=== PATIENT | male | born 1955 | race Caucasian/White ===

== ENCOUNTER 2020-07-11 22:54 | Emergency (ER) | payer BC ==
[2020-07-11 23:10] VITALS: BP 159/95; PULSE 82
--- NOTE | 2020-07-11 23:42 | EDM.PDOC ---
ED HPI GENERAL MEDICAL PROBLEM - General Chief Complaint: Lower Extremity Injury/Pain Stated Complaint: RIGHT LEG INJURY FROM A FALL Time Seen by Provider: 07/11/20 23:15 Source of Information: Reports: Patient, Family History Limitations: Reports: No Limitations - History of Present Illness INITIAL COMMENTS - FREE TEXT/NARRATIVE: 64-year-old male stepped through a broken board on his deck 4 hours ago catching his right lower leg in between 2 boards sustaining an injury to the lower leg. He has abrasions especially the proximal lateral aspect of the lower leg just distal to the knee and a few posteriorly. He is unable to bear weight. Onset: Sudden Duration: Hour(s): (4 hours) Location: Reports: Lower Extremity, Right Quality: Reports: Sharp, Stabbing Improves with: Reports: Rest Worsens with: Reports: Other (Weightbearing and movement is painful) right lower leg Pain Score (Numeric/FACES): 6 - Related Data Allergies Allergy/AdvReac Type Severity Reaction Status Date / Time adhesive tape Allergy Rash Verified 07/11/20 23:12 Home Meds: Home Meds amLODIPine [Norvasc] 5 mg PO DAILY 01/23/15 [History] Past Medical History Cardiovascular History: Reports: Angina, Hypertension Respiratory History: Reports: Sleep Apnea Other Genitourinary History: frequency Musculoskeletal History: Reports: Fracture - Infectious Disease History Infectious Disease History: Reports: Measles, Mumps - Past Surgical History Musculoskeletal Surgical History: Reports: Arthroscopic Knee Social & Family History - Tobacco Use Tobacco Use Status *Q: Never Tobacco User - Alcohol Use Days Per Week of Alcohol Use: 7 Number of Drinks Per Day: 6 Total Drinks Per Week: 42 - Recreational Drug Use Recreational Drug Use: No Review of Systems - Review of Systems Review Of Systems: See Below Constitutional: Denies: Fever Respiratory: Denies: Shortness of Breath Cardiovascular: Denies: Chest Pain Musculoskeletal: Reports: Leg Pain Skin: Reports: Other (Superficial abrasions but no deep bruising or erythema has developed). Denies: Bruising Neurological: Reports: No Symptoms. Denies: Paresthesia Psychiatric: Reports: No Symptoms ED EXAM, GENERAL - Physical Exam Exam: See Below Exam Limited By: No Limitations General Appearance: Alert, No Apparent Distress Head: Atraumatic Neck: Supple, Non-Tender Respiratory/Chest: No Respiratory Distress Extremities: Other (Right gastrocnemius is somewhat swollen and very tender to palpation compared to the left, knee is nontender and ankle is nontender. Achilles tendon is intact.) Course - Vital Signs Last Recorded V/S: Last Vital Signs Temp 96.8 F L 07/11/20 23:21 Pulse 82 07/11/20 23:21 Resp 16 07/11/20 23:21 BP 159/95 H 07/11/20 23:21 Pulse Ox 97 07/11/20 23:21 - Orders/Labs/Meds Orders: Active Orders 24 hr Category Date Time Status Tibia Fibula Rt [CR] Stat Exams 07/11/20 23:15 Taken DME for Discharge [COMM] Stat Oth 07/11/20 23:42 Ordered - Re-Assessments/Exams Free Text/Narrative Re-Assessment/Exam: 07/11/20 23:41 Right tib-fib x-ray is negative for fracture. 6 inch Fidel wrap was applied to the lower leg which felt better and supporting, however he still was unable to bear weight and walk efficiently. He was fitted with crutches and will recheck next week if not improving satisfactorily. Departure - Departure Time of Disposition: 00:17 Disposition: Home, Self-Care 01 Clinical Impression: Contusion of lower leg, right Qualifiers: Encounter type: initial encounter Qualified Code(s): S80.11XA - Contusion of right lower leg, initial encounter - Discharge Information Instructions: Contusion, [id number] Referrals: Noah Nuñez MD [Primary Care Provider] - Forms: ED Department Discharge Care Plan Goals: Wrap leg for comfort and support, use crutches for the next several days and increase activity as tolerated. Consider rechecking in 5 to 7 days if still unable to walk without crutches. Sepsis Event Note (ED) - Evaluation Sepsis Screening Result: No Definite Risk - Focused Exam Vital Signs: Vital Signs Temp Pulse Resp BP Pulse Ox 07/11/20 23:21 96.8 F L 82 16 159/95 H 97 07/11/20 23:08 96.8 F L 82 16 159/95 H 97 - My Orders Last 24 Hours: My Active Orders 07/11/20 23:15 Tibia Fibula Rt [CR] Stat 07/11/20 23:42 DME for Discharge [COMM] Stat - Assessment/Plan Last 24 Hours: My Active Orders 07/11/20 23:15 Tibia Fibula Rt [CR] Stat 07/11/20 23:42 DME for Discharge [COMM] Stat
--- NOTE | 2020-07-13 09:29 | CR ---
Tibia Fibula Rt CLINICAL HISTORY: Injury FINDINGS: There is no acute fracture or dislocation within the right wrist. There is some patellar spurring. Impression: No fracture. Mild osteoarthritic change
== END 2020-07-12 00:04 | disposition home or self-care (01) ==
LOC: JP.ED 22:54
DX: S80.811A Abrasion, right lower leg, initial encounter (principal); I10 Essential (primary) hypertension; Z91.048 Other nonmedicinal substance allergy status; W23.0XXA Caught, crushed, jammed, or pinched between moving objects, initial encounter
CPT/HCPCS: 73590-26-RT; 73590-RT; 99283